=== PATIENT | female | born 1980 | race Caucasian/White ===

== ENCOUNTER → 2020-11-29 13:55 | Outpatient (BNVA) | payer MEDICAID, SELFPAY | PROVIDERS: Family Provider Physician Assistant Medical; PCP Physician Assistant Medical; Visit Provider Nurse Practitioner Women's Health | DX: Z01.419 Encounter for gynecological examination (general) (routine) without abnormal findings (principal) | CPT/HCPCS: 88175 ==

== ENCOUNTER → 2021-10-20 09:01 | Outpatient (BNVA) | payer MEDICAID, SELFPAY | PROVIDERS: Family Provider Physician Assistant Medical; PCP Nurse Practitioner Family; Visit Provider Surgery | DX: K42.9 Umbilical hernia without obstruction or gangrene (principal); D68.59 Other primary thrombophilia; F17.210 Nicotine dependence, cigarettes, uncomplicated | CPT/HCPCS: 99204 ==

== ENCOUNTER 2021-10-30 06:35 | Day surgery (SDC) | payer MEDICAID, SELFPAY ==
[2021-10-27 11:55] VITALS: BMI 47.2
[2021-10-30] VITALS (11 sets, daily range): BP systolic 117–147; BP diastolic 66–100; PULSE 57–80; RESP 17–24; TEMP 36.1–36.4; O2SAT 96–100
[2021-10-30 06:55] LABS: OR HCG Qualitative Urine Negative (Negative)
[2021-10-30] MEDS: sodium chloride 0.9% 1,000 ML 30 ML IV (07:06)
--- NOTE | 2021-10-30 07:08 | W.PM.OPSFHP ---
Same Day Surgery H&P Indication for Procedure/HPI DATE OF PROCEDURE: October 30, 2021 CHIEF COMPLAINT/INDICATIONFOR SURGICAL PROCEDURE: lap recurrent umbilical hernia repair PREOP DIAGNOSIS: Umbilical hernia PLANNED PROCEDURE: Operation Date: 10/30/21 08:10 Proposed Procedures p Laparoscopic Ventral Hernia Repair 27354/incarcerated ventral hernia K43.63(Not Applicable) - Eduard Butts MD Medications/Allergies* Home Medications Medication Instructions Recorded Confirmed Type acetaminophen 325 mg capsule 650 mg PO Q6H PRN 07/07/19 10/30/21 History (Tylenol) acyclovir 400 mg tablet 400 mg PO BID 07/07/19 10/30/21 History clonazepam 0.5 mg tablet 0.25 mg PO BID PRN 07/07/19 10/30/21 History cyanocobalamin (vitamin B-12) 500 500 mcg PO ONCE 07/07/19 10/30/21 History mcg tablet (B-12 DOTS) eszopiclone 1 mg tablet (Lunesta) 1 mg PO PRN 07/07/19 10/30/21 History omeprazole 40 mg capsule,delayed 40 mg PO ONCE cap 07/07/19 10/30/21 History release docusate sodium 100 mg capsule 100 mg PO DAILY cap 11/29/20 10/30/21 History (Colace) gabapentin 600 mg tablet 600 mg PO BID 11/29/20 10/30/21 History metformin 1,000 mg tablet 1,000 mg PO BID 11/29/20 10/30/21 History montelukast 10 mg tablet 10 mg PO DAILY 11/29/20 10/30/21 History (Singulair) warfarin 3 mg tablet 3 mg PO ONCE 11/29/20 10/27/21 History warfarin 6 mg tablet 6 mg PO ONCE 11/29/20 10/27/21 History Allergies/Adverse Reactions Allergy/AdvReac Type Severity Reaction Status Date / Time adhesive tape Allergy Unknown Unknown Verified 10/20/21 09:08 lisinopril Allergy throat Verified 10/20/21 09:08 swelling Current Medications: Generic Name Dose Route Start Last Admin Trade Name Freq PRN Reason Stop Dose Admin Sodium Chloride 1,000 mls @ 30 mls/hr 10/30/21 06:45 10/30/21 07:06 Sodium Chloride 0.9% IV 10/31/21 06:44 30 mls/hr .Q24H ISABELLE Administration Pertinent History/Comorbid Conditions* Medical History (Updated 10/20/21 @ 09:18 by Eduard Butts MD) Anxiety and depression CVA (cerebral vascular accident) Diabetes Herpetic ariana Migraines Protein C deficiency Sleep apnea Thromboembolism of the carotid Surgical History (Updated 10/20/21 @ 09:18 by Eduard Butts MD) H/O esophagogastroduodenoscopy 06/2019 History of bilateral tubal ligation (~2002) History of colonoscopy 2 years ago History of endometrial ablation (~03/16/16) Endometrial Hydrothermal Ablation, [employer] [facility]-- Dr. Walker History of hernia repair (~2015) umbilicus History of laparoscopic cholecystectomy (~2001) Family History (Updated 11/29/20 @ 13:22 by Raven Wyman) Colon cancer Father dx age unknown-- at 54 Ovarian cancer Sister dx age 21 Diabetes Family/Other Maternal Aunt Mother Heart disease Mother Hypercholesteremia Family/Other Maternal Aunt Hypertension Family/Other Maternal Aunt Stroke Mother Denies family history of Breast cancer Uterine cancer Thyroid disease Social History Smoking and tobacco status: current every day smoker (1 pack a day ) Pertinent Exam Findings alert, oriented x 3 and regular rate & rhythm Recommendations Surgery/Procedure today Coding Level of Care Code Acute Marketing Analytics Lead for [employer]
--- NOTE | 2021-10-30 07:18 | P.ANESASSM_ITS ---
Pre-Anesthetic Assessment Height/Weight: Height 1.52 m Weight 109.769 kg Temp Pulse Resp BP Pulse Ox 97.5 F L 80 18 130/85 99 10/30/21 06:47 10/30/21 06:47 10/30/21 06:47 10/30/21 06:47 10/30/21 06:47 Preop Diagnosis: Umbilical hernia Operation Date: 10/30/21 08:10 Proposed Procedures p Laparoscopic Ventral Hernia Repair 71078/incarcerated ventral hernia K43.63(Not Applicable) - Eduard Butts MD Familial anesthetic complications: none Was Beta Chica taken within 24 hours: N/A Was Clonidine taken within 24 hours: N/A Last intake: Intake Last Liquid Date 10/29/21 Last Liquid Time 23:30 Last Solid Date 10/29/21 Last Solid Time 21:00 Last Intake: 23:30 Social Tobacco and No alcohol 1ppd pack(s) per day 20+ pack years Exam alert, oriented x 3, clear to auscultation bilaterally and regular rate & rhythm Airway Submandibular: within normal limits Cervical ROM: within normal limits Mallampati: Class II Dentition: false (upper) Pulmonary Sleep Apnea (cpap) CV/HEM Deep Vein Thrombosis (Protein C defiency and L carotid clot in 2000) and Hypertension None reported Hepatic None reported GI Gastroesophageal Reflux Disease Metabolic Diabetes Mellitus (avg 100-200) [facility] [place] None reported Neuropsych Cerebrovascular Accident (2000 right side weakness. now just memory) Anesthetic Plan ASA status: 3 Anesthesia: General Risk of > 500 ml blood loss (7ml/kg in children): No Medications/Allergies Home Medications Medication Instructions Recorded Confirmed Last Taken Type acetaminophen 325 mg capsule 650 mg PO Q6H PRN 07/07/19 10/30/21 10/29/21 10:00 History (Tylenol) acyclovir 400 mg tablet 400 mg PO BID 07/07/19 10/30/21 10/29/21 22:30 History clonazepam 0.5 mg tablet 0.25 mg PO BID PRN 07/07/19 10/30/21 Unknown History cyanocobalamin (vitamin B-12) 500 500 mcg PO ONCE 07/07/19 10/30/21 10/28/21 History mcg tablet (B-12 DOTS) eszopiclone 1 mg tablet (Lunesta) 1 mg PO PRN 07/07/19 10/30/21 10/29/21 21:30 History omeprazole 40 mg capsule,delayed 40 mg PO ONCE cap 07/07/19 10/30/21 10/29/21 10:00 History release docusate sodium 100 mg capsule 100 mg PO DAILY cap 11/29/20 10/30/21 10/29/21 10:00 History (Colace) gabapentin 600 mg tablet 600 mg PO BID 11/29/20 10/30/21 10/29/21 21:30 History metformin 1,000 mg tablet 1,000 mg PO BID 11/29/20 10/30/21 10/28/21 History montelukast 10 mg tablet 10 mg PO DAILY 11/29/20 10/30/21 10/29/21 21:30 History (Singulair) warfarin 3 mg tablet 3 mg PO ONCE 11/29/20 10/27/21 10/25/21 History warfarin 6 mg tablet 6 mg PO ONCE 11/29/20 10/27/21 10/25/21 History enoxaparin 120 mg/0.8 mL 120 mg (0.8 mL) SUBCUT BID 2 Days 10/20/21 10/30/21 10/29/21 21:30 Rx subcutaneous syringe (Lovenox) #3.2 ml oxycodone-acetaminophen 5 mg-325 1 tab PO Q6H PRN #20 tab 10/30/21 Unknown Rx mg tablet (Percocet) Allergies Allergy/AdvReac Type Severity Reaction Status Date / Time adhesive tape Allergy Unknown Unknown Verified 10/20/21 09:08 lisinopril Allergy throat Verified 10/20/21 09:08 swelling Current Medications Generic Name Dose Route Start Last Admin Trade Name Freq PRN Reason Stop Dose Admin Sodium Chloride 1,000 mls @ 30 mls/hr 10/30/21 06:45 10/30/21 07:06 Sodium Chloride 0.9% IV 10/31/21 06:44 30 mls/hr .Q24H ISABELLE Administration PFSH Anesthesia Medical History Anxiety and depression CVA (cerebral vascular accident) Diabetes Herpetic ariana Migraines Protein C deficiency Sleep apnea Thromboembolism of the carotid Surgical History (Updated 10/30/21 @ 07:17 by Eduard Butts MD) H/O esophagogastroduodenoscopy 06/2019 History of bilateral tubal ligation (~2002) History of colonoscopy 2 years ago History of endometrial ablation (~03/16/16) Endometrial Hydrothermal Ablation, [place] System-- Dr. Walker History of hernia repair (~2015) umbilicus History of laparoscopic cholecystectomy (~2001) History of umbilical hernia repair (10/30/21) recurrent umbilical - laparoscopic Family History Father Colon cancer dx age unknown-- at 54 Family/Other Diabetes Maternal Aunt Hypercholesteremia Maternal Aunt Hypertension Maternal Aunt Mother Stroke Heart disease Diabetes Sister Ovarian cancer dx age 21 Denies family history of Breast cancer Uterine cancer Thyroid disease Social History Smoking and tobacco status: current every day smoker (1 pack a day ) Data Anesthesia Cardiac Studies: No Data to Display
--- NOTE | 2021-10-30 08:55 | PM.OP ---
Operative Report Date of procedure: October 30, 2021 Pre-op diagnosis: Recurrent umbilical hernia Post-op diagnosis: Recurrent incarcerated umbilical hernia containing omentum Omental necrosis Retraction of previously placed mesh Procedure done: 1. Laparoscopic repair of recurrent incarcerated umbilical hernia 2. Partial omentectomy 3. Explantation of retracted mesh Specimens removed/disposition: 1. Omentum 2. Explanted mesh Surgeon: Eduard Butts Anesthesia: General Condition: stable Disposition: PACU Procedure: The patient was taken to the Operating Room and was intubated under general anesthesia after the antibiotic had been administered. The abdomen was prepped and draped in a sterile manner. Using a 15 blade, a 2-cm incision was made in the left upper quadrant in the anterior axillary line and pneumoperitoneum was created using Verres needle. A 10 mm Adarsh port was placed and 15 mm of pneumoperitoneum was created after a 10 mm 30? scope had been introduced. 5 mm port was placed at the level of the umbilicus and in the left lower quadrant under direct visualization. Using LigaSure the peritoneum in the midline was taken down and the omental fat within the hernial sac was reduced. The mesh had retracted into a round mass just superior to the incarcerated hernia. Using LigaSure the mesh was dissected free from the abdominal wall. The hernia sac was everted and secured with Securestraps to avoid seroma. Spinal needle was introduced through the abdominal wall and the edges of the hernial defect were marked and measured 5 x 5 cm. A 5 cm margin was marked on the abdominal wall on the outer edge of the hernial defect. 15 x [address] mesh was selected and 4 separate 2-0 Kneeland-Miky sutures were placed at the 4 corners of the mesh. Grannie needle was passed through the stab incisions and used to grasp the free ends of the Kneeland-Miky sutures which were then used to pull the mesh up against the abdominal wall; 5 mm SecurStraps were placed 1 cm apart along the edge of the mesh to hold it against the abdominal wall. At the end of this, it was noted that the mesh was well positioned over the hernial defect. 20 cc of saline mixed with 20cc of Exparel mixed with 20cc of 0.5% Marcaine was infiltrated in the midclavicular line bilaterally under laparoscopic visualization for a TAP block. All ports were removed under direct visualization and there was no bleeding noted from the port sites. The external oblique aponeurosis was approximated at LUQ port site using figure of eight 0 Vicryl suture. The subcutaneous tissue was approximated using 3-0 Vicryl sutures. The skin at all 3 port sites was closed using subcuticular 4-0 Monocryl suture. The stab incisions and the port sites were covered with Dermabond. Abdominal binder was placed at the end of the procedure and the patient was extubated and transferred to recovery room in stable condition.
[2021-10-30] MEDS: fentaNYL 50 mcg/mL INJ 2mL IVP (09:20)
[2021-10-30] MEDS: oxyCODONE-APAP 5-325 mg Tablet 1 TAB PO (09:57)
[2021-10-30 11:37] LABS: Glucose Point of Care 148 mg/dL (70-110)
--- NOTE | 2021-10-30 13:33 | ANE.PACU2 ---
Inpatient post-anesthesia follow up: Airway intact: Yes Vital signs: Temperature 97.1 F Pulse Rate 57 Respiratory Rate 17 Blood Pressure 117/76 Pulse Oximetry 96 Oxygen Delivery Me thod Room Air Oxygen Flow Rate 3 Fraction of Inspir ed Oxygen Hydration adequate: Yes Nausea and vomiting: No Pain level: 3 Mental status: Baseline
== END 2021-10-30 11:08 | disposition home or self-care (01) ==
PROVIDERS: Anesthesiology; Family Provider Physician Assistant Medical; PCP Nurse Practitioner Family; Visit Provider Surgery
PROC: 0WQF4ZZ Repair Abdominal Wall, Percutaneous Endoscopic Approach (ICD-10-PCS; CPT 49653; principal; 2021-10-30 08:00)
DX: K42.0 Umbilical hernia with obstruction, without gangrene (principal); F17.200 Nicotine dependence, unspecified, uncomplicated; G47.30 Sleep apnea, unspecified; I10 Essential (primary) hypertension; Z86.718 Personal history of other venous thrombosis and embolism; K21.9 Gastro-esophageal reflux disease without esophagitis; E11.9 Type 2 diabetes mellitus without complications; Z86.73 Personal history of transient ischemic attack (TIA), and cerebral infarction without residual deficits; Z79.01 Long term (current) use of anticoagulants; F41.9 Anxiety disorder, unspecified; F32.9 Major depressive disorder, single episode, unspecified
CPT/HCPCS: 49653; 36416; 81025; 82962; 84703; 88305; C1781; C9290; J0690; J2370; J2405; J2704; J2710; J3010; J3490; J3535; J7030

== ENCOUNTER → 2021-11-14 09:21 | Outpatient (BNVA) | payer MEDICAID, SELFPAY | PROVIDERS: Family Provider Physician Assistant Medical; PCP Nurse Practitioner Family; Visit Provider Surgery | DX: Z98.890 Other specified postprocedural states (principal); Z87.19 Personal history of other diseases of the digestive system ==

== ENCOUNTER → 2021-12-12 09:34 | Outpatient (BNVA) | payer MEDICAID, SELFPAY | PROVIDERS: Family Provider Physician Assistant Medical; PCP Nurse Practitioner Family; Visit Provider Surgery | DX: Z98.890 Other specified postprocedural states (principal); Z87.19 Personal history of other diseases of the digestive system | CPT/HCPCS: 99024 ==

== ENCOUNTER 2022-02-12 09:04 | Outpatient (CLI) | payer MEDICAID, SELFPAY ==
--- NOTE | 2022-02-12 09:20 | MM_ITS ---
WS: [id number] SCREENING DIGITAL TOMOSYNTHESIS MAMMOGRAM WITH CAD HISTORY: Screening. COMPARISON: None available. Bilateral CC and MLO with tomosynthesis views submitted. Synthetic mammography reviewed. Computer aid ed detection analyzed. Breast composition: There are scattered areas of fibroglandular density. No suspicious masses, microc alcifications or architectural distortion. Benign calcifications anterior LEFT breast. MM/[place] [id number] IMPRESSION: BI-RADS: 2-Benign FOLLOW UP: 1 Year Follow-up
== END 2022-02-12 09:05 | disposition home or self-care (01) ==
LOC: RAD 09:07
PROVIDERS: Family Provider Physician Assistant Medical; PCP Nurse Practitioner Family; Visit Provider Nurse Practitioner Women's Health
DX: Z12.31 Encounter for screening mammogram for malignant neoplasm of breast (principal)
CPT/HCPCS: 77063; 77067

== ENCOUNTER 2022-10-18 12:59 | Oncology outpatient (recurring) (ONCR) | payer MEDICAID, SELFPAY | END 2022-10-21 23:59 | disposition home or self-care (01) | PROVIDERS: PCP Nurse Practitioner Family; Visit Provider Internal Medicine Medical Oncology | DX: Z53.9 Procedure and treatment not carried out, unspecified reason (principal) ==

== ENCOUNTER 2022-10-29 13:52 | Oncology outpatient (recurring) (ONCR) | payer MEDICAID, SELFPAY ==
[2022-10-29 14:50] LABS: Basophils % 0.2 %; Eosinophils # 0.1 10^3/uL (0.0-0.8); Hematocrit 38.5 % (37.0-47.0); Hemoglobin 12.4 g/dL (11.5-15.3); Lymphocytes # 3.3 10^3/uL (0.8-4.8); Lymphocytes % 35.5 %; Mean Corpuscular HGB Conc 32.2 g/dL (30.0-36.0); Mean Corpuscular Hemoglobin 28.1 pg (28.0-34.0); Mean Corpuscular Volume 87.1 fl (81-99); Mean Platelet Volume 9.2 fL (7.4-10.4); Monocytes # 0.5 10^3/uL (0.2-0.9); Monocytes % 5.3 %; Neutrophils # 5.33 10^3/uL (1.8-7.7); Neutrophils % 57.8 %; Nucleated Red Blood Cells % 0 %; Platelet Count 358 10^3/cmm (130-400); Red Blood Count 4.42 10^6/uL (4.1-5.3); White Blood Count 9.2 10^3/uL (4.0-10.0)
[2022-11-02 02:05] LABS: CARDIOLIPIN AB (IGA) <2.0 APL-U/mL; CARDIOLIPIN AB (IGG) <2.0 GPL-U/mL; CARDIOLIPIN AB (IGM) <2.0 MPL-U/mL
[2022-11-03 01:35] LABS: Factor 5 Leiden Mutation NEGATIVE
[2022-11-03 02:09] LABS: PROTHROMBIN (FACTOR II) 20210G NEGATIVE
[2022-11-03 14:10] LABS: Antithrombin III Activity 122 % normal (80-135); PROTEIN C, ACTIVITY 179 % normal (70-180)
[2022-11-04 03:30] LABS: Beta 2 Glycoprotein IGA <2.0 U/mL (<20.0); Beta 2 Glycoprotein IGG <2.0 U/mL (<20.0); Beta 2 Glycoprotein IGM <2.0 U/mL (<20.0)
== END 2022-11-21 23:59 | disposition home or self-care (01) ==
LOC: ONCMED 13:53
PROVIDERS: PCP Nurse Practitioner Family; Visit Provider Internal Medicine Medical Oncology
DX: D68.59 Other primary thrombophilia (principal)
CPT/HCPCS: 36415; 81241; 85025; 85210; 85300; 85303; 86146; 86147

== ENCOUNTER → 2024-12-09 15:40 | Outpatient (BNVA) | payer MEDICAID, SELFPAY | PROVIDERS: PCP Nurse Practitioner Family; Visit Provider Podiatrist Foot & Ankle Surgery | DX: E11.40 Type 2 diabetes mellitus with diabetic neuropathy, unspecified (principal); L84 Corns and callosities; M20.41 Other hammer toe(s) (acquired), right foot; M20.42 Other hammer toe(s) (acquired), left foot; E11.69 Type 2 diabetes mellitus with other specified complication; Z79.84 Long term (current) use of oral hypoglycemic drugs | CPT/HCPCS: 11056; 99204 ==